=== PATIENT | female | born 1975 | race African-American/Black ===

== ENCOUNTER 2016-12-15 10:49 | Observation (INO) | payer MEDICARE, MEDICAID ==
[~2016-12-15] VITALS: Ht 170.2 cm; Wt 100.0 kg
[~2016-12-15 10:49] MED LIST: ALPR0.2582 PO; GABA-529 PO; LANTIS; METFORMIN; OXYC-102
== END 2016-12-15 13:55 | disposition home or self-care (01) ==
LOC: L&D 10:49
PROVIDERS: ADMIT Specialist; ATTEND Specialist
DX: O46.92 Antepartum hemorrhage, unspecified, second trimester (principal); Z3A.24 24 weeks gestation of pregnancy
CPT/HCPCS: 76805; 99281; G0378